=== PATIENT | female | born 1995 | race Caucasian/White ===

== ENCOUNTER 2019-07-15 18:07 | Emergency (ER) | payer OTHER ==
[~2019-07-15] VITALS: Ht 167.6 cm; Wt 72.0 kg
[2019-07-15] MEDS ORDERED: BCP PO (18:15)
[2019-07-15] MEDS ORDERED: SYNT50TA PO (18:15)
[2019-07-15] MEDS: KETOROLAC TROMETHAMINE 10 MG TAB PO ONE (19:03)
[2019-07-15 19:19] VITALS: BP 142/93
== END 2019-07-15 19:30 | disposition home or self-care (01) ==
LOC: M ED 18:07
DX: J02.9 Acute pharyngitis, unspecified (principal); Z79.899 Other long term (current) drug therapy; J30.2 Other seasonal allergic rhinitis